=== PATIENT | male | born 1965 | race American Indian/Alaskan Native ===

== ENCOUNTER 2022-05-03 11:11 | Emergency (ER) | payer OTHER ==
[2022-05-03] MEDS ORDERED: Ketorolac 60 MG/2 ML SDV IM ONE (11:50)
== END 2022-05-03 14:15 | disposition home or self-care (01) ==
LOC: JD.ED 11:11
DX: S20.212A Contusion of left front wall of thorax, initial encounter (principal); I10 Essential (primary) hypertension; F17.210 Nicotine dependence, cigarettes, uncomplicated; Z86.16 Personal history of COVID-19; Z79.899 Other long term (current) drug therapy; W20.8XXA Other cause of strike by thrown, projected or falling object, initial encounter
CPT/HCPCS: 71101; 72072; 96372; 99284; J1885; 99283